=== PATIENT | male | born 1995 | race African-American/Black ===

== ENCOUNTER 2016-11-24 11:44 | Emergency (ER) | payer BC ==
[~2016-11-24] VITALS: Ht 188 cm; Wt 140.6 kg
[2016-11-24 11:54] VITALS: BP 165/100
[2016-11-24] MEDS ORDERED: KETOROLAC 60 MG/2 ML INJ. IM ONE (12:15)
[2016-11-24] MEDS ORDERED: MORPHINE SULFATE 10 MG/ML VIAL. IM ONE (12:15)
[2016-11-24] MEDS ORDERED: DEXAMETHASONE SOD PHOS 20 MG/5 ML VIAL. IM ONE (12:15)
--- NOTE | 2016-11-24 12:18 | PHYS DOC ---
Past Medical History Past Medical History: No Pertinent History Past Surgical History: No Surgical History Alcohol Use: Occasionally Drug Use: None Adult General Chief Complaint Chief Complaint: PAIN CONTROL HPI HPI Patient is a 21 year old male who presents to the ED today with moderate throbbing right shoulder pain from rotator cuff injury to the right shoulder that he sustained yesterday, patient states he was seen at [facility] on the [place] side and was given prescription for hydrocodone which is not helping. Patient states he has a 3 hour flight back to [place] and would like something for pain today in the ED. Patient denies any new injuries. Review of Systems Review of Systems Constitutional: Denies fever or chills [] Musculoskeletal: right shoulder pain Integument: Denies rash or skin lesions [] Neurologic: Denies headache, focal weakness or sensory changes [] Current Medications Current Medications Current Medications Medications (Trade) Dose Ordered Sig/Sarita Start Time Stop Time Status Last Admin Dose Admin Dexamethasone Sodium Phosphate (Decadron) 10 mg 1X ONCE 11/24/16 12:15 11/24/16 12:16 DC 11/24/16 12:12 10 MG Ketorolac Tromethamine (Toradol Im) 60 mg 1X ONCE 11/24/16 12:15 11/24/16 12:16 DC 11/24/16 12:13 60 MG Morphine Sulfate 5 mg 1X ONCE 11/24/16 12:15 11/24/16 12:16 DC 11/24/16 12:13 5 MG Allergies Allergies Allergies Coded Allergies Type Severity Reaction Last Updated Verified No Known Drug Allergies 11/24/16 No Physical Exam Physical Exam Constitutional: Well developed, well nourished, no acute distress, non-toxic appearance. [] Skin: Warm, dry, no erythema, no rash. [] Back: No tenderness, no CVA tenderness. [] Extremities: Right UE is in a sling. Exam is limited due to pain. +2 right radial pulse. Cap refill less than 2 seconds the right fingers. Neurologic: Alert and oriented X 3, normal motor function, normal sensory function, no focal deficits noted. [] Psychologic: Affect normal, judgement normal, mood normal. [] Current Patient Data Vital Signs Vital Signs Date Time Temp Pulse Resp B/P (MAP) Pulse Ox O2 Delivery O2 Flow Rate FiO2 11/24/16 12:13 16 Room Air 11/24/16 11:54 97.5 57 100 97.5 EKG EKG [] Radiology/Procedures Radiology/Procedures [] Course & Med Decision Making Course & Med Decision Making Pertinent Labs and Imaging studies reviewed. (See chart for details) Patient is in the ED for pain control after a rotator cuff injury yesterday. He was already seen at a different facility and is given prescription for hydrocodone. He states it's not helping. He has a flight back to [place]. He would like something for pain before he departs. He was given morphine, Toradol and Decadron in the ED. He was discharged with instructions to follow-up with his on orthopedic doctor as soon as he gets back to [place]. He was instructed to take 1-2 hydrocodone so as needed for pain. He was only taking 1 [place]. Naproxen and Medrol Dosepak also provided. Dragon Disclaimer Dragon Disclaimer This electronic medical record was generated, in whole or in part, using a voice recognition dictation system. Departure Departure Impression: Primary Impression: Inadequate pain control Disposition: 01 HOME, SELF-CARE Condition: STABLE Referrals: DIONICIO GALARZA MD follow up in one week Patient Instructions: Rotator Cuff Injury Additional Instructions: You were seen for right shoulder pain from a rotator cuff injury sustained yesterday. Please follow-up with the orthopedic doctor in [place] as soon as you get there. Take them as prescribed. You can take 1-2 hydrocodone tablets as needed for pain. Ice and elevate the affected area. We also provided do an orthopedic doctor in [place] in case you have none to follow-up with. Scripts Naproxen (NAPROXEN) 500 Mg Tablet.dr 1 TAB PO BID, #60 TAB 1 Refill Prov: LEESA FARIA APRN 11/24/16 Cyclobenzaprine Hcl (CYCLOBENZAPRINE HCL) 10 Mg Tablet 1 TAB PO TID, #30 TAB Prov: LEESA FARIA APRN 11/24/16 Methylprednisolone (MEDROL) 4 Mg Tab.ds.pk 1 PKG PO UD, #1 PKG Prov: LEESA FARIA APRN 11/24/16 LEESA FARIA APRN Nov 24, 2016 12:18
[2016-11-24] MEDS ORDERED: CYCL10TA2 PO (12:22)
[2016-11-24] MEDS ORDERED: METH4TAB2 PO (12:22)
[2016-11-24] MEDS ORDERED: NAPR500T8 PO (12:23)
== END 2016-11-24 12:52 | disposition home or self-care (01) ==
LOC: ER 11:44
DX: M25.511 Pain in right shoulder (principal)
CPT/HCPCS: 96372; 99284; J1100; J1885; J2270